=== PATIENT | male | born 1985 | race Caucasian/White ===

== ENCOUNTER 2023-10-18 23:14 | Emergency (ER) | payer SELFPAY ==
[~2023-10-18] VITALS: Ht 167.6 cm; Wt 72.6 kg
[2023-10-18 23:17] VITALS: BP 130/81; PULSE 90; RESP 17; TEMP 97.9; O2SAT 98
[2023-10-19] MEDS ORDERED: AMOXIL/CLAVULANATE 875/125 MG 1 TAB PO ONE (01:50)
[2023-10-19] MEDS ORDERED: BACITRACIN OINT 500 UNITS/GM PKT TP ONE (01:50)
[2023-10-19] MEDS ORDERED: IBUPROFEN 600 MG TAB PO ONE (01:50)
[2023-10-19] MEDS ORDERED: AMOX1TAB8 PO (02:22)
== END 2023-10-19 02:33 | disposition home or self-care (01) ==
LOC: MED 23:14
DX: S61.452A Open bite of left hand, initial encounter (principal); S50.812A Abrasion of left forearm, initial encounter; Z79.2 Long term (current) use of antibiotics; W54.0XXA Bitten by dog, initial encounter; Y93.89 Activity, other specified; Y92.89 Other specified places as the place of occurrence of the external cause; Y99.8 Other external cause status
CPT/HCPCS: 90471; 90715; 99284